=== PATIENT | female | born 2000 | race Caucasian/White ===

== ENCOUNTER 2018-08-25 14:47 | Emergency (ER) | payer BC ==
[2018-08-25] MEDS ORDERED: NS 1,000 ML IV ONE (15:05)
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
[2018-08-25 15:25] LABS: PLATELET COUNT 209 10^3/uL (150-400)
--- NOTE | 2018-08-25 16:34 | CPEKG ---
Test Reason : OPEN Blood Pressure : / mmHG Vent. Rate : 068 BPM Atrial Rate : 072 BPM P-R Int : 153 ms QRS Dur : 084 ms QT Int : 380 ms P-R-T Axes : 011 054 037 degrees QTc Int : 405 ms Sinus rhythm Confirmed by Nikunj Hathaway ([id number]) on 08/25/2018 4:33:40 PM Referred By: Confirmed By:Nikunj Hathaway
[2018-08-25] MEDS ORDERED: LORAZEPAM 1 MG PREPACK#4 BTL TAKEHOME ONE (21:08)
[2018-08-25 22:44] VITALS: BP 117/76
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
--- NOTE | 2018-08-25 23:31 | ASMTTCLDSP ---
TLC Discharge Disposition Disposition: Answers: Discharge If Answers: Yes DISCHARGED: Patient/family given suicide hotline info & SAMHSA brochure? Disposition Notes: Notes: In consultation with [facility] ED physician, Arvin Grimm MD, Dr. Grimm concurred that pt does not appear to meet 27-65 criteria requiring psychiatric hospitalization as pt does not appear to be an imminent risk of harm to self due to a mental illness condition. Discharge Concerns/Recommendations: Notes: Follow up with [facility], Seek PTSD treatment, and agrees to use crisis clinic or suicide hotline if unsure if she can keep herself safe. Date Signed: 08/25/2018 11:31 PM Electronically Signed By:Klaus Grimm
== END 2018-08-25 22:44 | disposition home or self-care (01) ==
DX: R55 Syncope and collapse (principal); F32.9 Major depressive disorder, single episode, unspecified; F43.10 Post-traumatic stress disorder, unspecified
CPT/HCPCS: 80305; G0480